=== PATIENT | male | born 1970 | race Caucasian/White ===

== ENCOUNTER 2016-07-22 15:07 | Observation (INO) | payer OTHER ==
[2016-07-22] VITALS (8 sets, daily range): BP systolic 124–132; BP diastolic 73–89; PULSE 66–84; TEMP 98.1–99.4
[~2016-07-22] VITALS: Ht 180.3 cm; Wt 82.1 kg
[2016-07-22 17:13] LABS: BASO # 0.1 (0.0-0.2); BASO % 0.6 % (0.0-2.0); EOS % 0.3 % (0-4.0); GRAN % 73.6 % (42.2-75.2); HEMATOCRIT 45.1 % (42.0-52.0); HEMOGLOBIN 16.6 g/dl (13.5-18.0); LYMPH # 2.3 (1.2-3.4); LYMPH % 18.5 % (20.0-51.0); MEAN CELL VOLUME 86 fl (80.0-100.0); MEAN CORPUSCULAR HEMOGLOBIN 32 pg (27.0-31.0); MEAN CORPUSCULAR HGB CONC 37 g/dl (33.0-37.0); MEAN PLATELET VOLUME 9.7 fl (7.4-10.4); MONO # 0.8 (0.1-0.6); MONO % 6.8 % (1.7-9.3); PLATELET COUNT 192 K/mm3 (130-400); RED BLOOD COUNT 5.22 M/mm3 (4.20-5.60); REDCELL DISTRIBUTION WIDTH-CV 11.9 % (11.5-14.5); WHITE BLOOD COUNT 12.2 K/mm3 (4.8-10.8)
[2016-07-22 17:15] LABS: INR 1.6 (0.8-3.0); PROTHROMBIN TIME 17.9 SECONDS (9.7-12.8)
[2016-07-22 17:17] LABS: PARTIAL THROMBOPLASTIN TIME 34.9 SECONDS (26.0-37.0)
[2016-07-22 17:21] LABS: ADJUSTED CALCIUM 9.4 mg/dL (8.4-10.2); ALBUMIN 4.6 gm/dL (3.5-5.0); BILIRUBIN,TOTAL 1.2 mg/dL (0.0-1.0); CALCIUM 9.9 mg/dL (8.4-10.2); CREATININE, serum 1.08 mg/dL (0.66-1.25); POTASSIUM 3.8 mmol/L (3.4-5.0); TOTAL PROTEIN 7.8 gm/dL (6.4-8.2)
== END 2016-07-22 23:45 | disposition home or self-care (01) ==
LOC: COL.ER 15:07 → SURG 16:49
PROVIDERS: Physician Assistant
DX: S86.821A Laceration of other muscle(s) and tendon(s) at lower leg level, right leg, initial encounter (principal); S81.031A Puncture wound without foreign body, right knee, initial encounter; V28.0XXA Motorcycle driver injured in noncollision transport accident in nontraffic accident, initial encounter
CPT/HCPCS: G0378; J0360; J0690; J1100; J1170; J1200; J1885; J2405; J2704; J3010